=== PATIENT | male | born 1960 | race Caucasian/White ===

== ENCOUNTER 2020-06-26 14:08 | Outpatient (RCR) | payer BC, SELFPAY ==
[2017-03-08 10:14] VITALS: BMI 31.2
[2020-06-26] MEDS: COVID-19 VACC, MRNA(PFIZER)/PF 30 MCG/0.3 ML SYRINGE IM (08:44)
[2020-07-17] MEDS: COVID-19 VACC, MRNA(PFIZER)/PF 30 MCG/0.3 ML SYRINGE IM (08:40)
== END 2020-06-26 23:59 ==
LOC: IMMUN 14:08
PROVIDERS: PCP Family Medicine; Referring Provider Family Medicine; Visit Provider Family Medicine
DX: Z23 Encounter for immunization (principal)
CPT/HCPCS: 0001A; 0002A; 91300